=== PATIENT | male | born 1955 | race Caucasian/White ===

== ENCOUNTER 2019-01-03 09:47 | Emergency (ER) | payer MEDICARE ==
[2019-01-03] MEDS ORDERED: Adacel Vial IM ONE ×2 (10:06→10:22)
[2019-01-03 10:07] VITALS: BP 118/86; PULSE 65; O2SAT 97
[2019-01-03] MEDS ORDERED: Xylocaine-Mpf 2% 5 Ml Vial IJ ONE (10:13)
--- NOTE | 2019-01-03 10:19 | ERPHSYRPT ---
- History of Present Illness Time Seen by Provider: 01/03/19 10:05 Source: patient Exam Limitations: clinical condition Patient Subjective Stated Complaint: Fishing hook in the pad below the left thumb Triage Nursing Assessment: vitals wnl, no bleeding, denies any other injuries Physician History: PATIENT WITH A HISTORY OF HYPERTENSION WHILE FISHING CAUGHT A FISH HOOK INTO HIS LEFT PALM, HAS PAIN DISCOMFORT. Occurred: just prior to arrival Method of Injury: incised Quality: constant Severity of Pain-Max: mild Severity of Pain-Current: mild Extremities Pain Location: hand: left Modifying Factors: Improves With: movement Associated Symptoms: none Allergies/Adverse Reactions: No Known Drug Allergies Allergy (Verified 01/03/19 09:59) Home Medications: Olmesartan Medoxomil 20 mg PO DAILY 01/03/19 [History] Omeprazole 20 mg PO DAILY 01/03/19 [History] Simvastatin 10 mg PO DAILY 01/03/19 [History] Hx Tetanus, Diphtheria Vaccination/Date Given: No - Review of Systems Constitutional: No Fever, No Chills Eyes: No Symptoms Ears, Nose, & Throat: No Symptoms Respiratory: No Cough, No Dyspnea Cardiac: No Chest Pain, No Edema, No Syncope Abdominal/Gastrointestinal: No Abdominal Pain, No Nausea, No Vomiting, No Diarrhea Genitourinary Symptoms: No Dysuria Musculoskeletal: Injury, Other (FOREIGN BODY IN LEFT HAND), No Back Pain, No Neck Pain Skin: No Rash Neurological: No Symptoms, No Dizziness, No Focal Weakness, No Sensory Changes Psychological: No Symptoms Endocrine: No Symptoms All Other Systems: Reviewed and Negative - Past Medical History Pertinent Past Medical History: Yes Cardiac History: Hypertension Other Medical History: barretts, kidney stones - Past Surgical History Past Surgical History: Yes Musculoskeletal: Orthopedic Surgery Other Surgical History: rotator cuff - Social History Smoking Status: Never smoker Exposure to second hand smoke: No Drug Use: none Patient Lives Alone: No - Nursing Vital Signs Nursing Vital Signs: Initial Vital Signs Temperature 97.5 F 01/03/19 09:53 Pulse Rate 65 01/03/19 09:53 Blood Pressure 118/86 01/03/19 09:53 O2 Sat by Pulse Oximetry 97 01/03/19 09:53 Pain Scale Pain Intensity 1 - Physical Exam General Appearance: no apparent distress Hand Exam: soft tissue tenderness (THERE IS A FISH HOOK FOREIGN BODY PARTIALLY EMBEDDED INTO LEFT HAND THENAR EMINENCE, FULL RANGE OF MOTION OF ALL DIGITS.) DTR - Upper Extremity Exam: bicep (R): 2+, bicep (L): 2+, tricep (R): 2+, tricep (L): 2+ Skin Exam: normal color SpO2 Interpretation: normal SpO2: 97 Ordered Tests: Medication Summary Discontinued Medications Generic Name Dose Route Start Last Admin Trade Name Freq PRN Reason Stop Dose Admin Diphtheria/Tetanus/Acell Pertussis 0.5 ml 01/03/19 10:06 Adacel Vial IM 01/03/19 10:07 .ONCE ONE - Progress Progress Note: 01/03/19 10:16M, ADMINISTERED ADACEL 0.5ML IM Counseled pt/family regarding: diagnosis, need for follow-up - Departure Departure Disposition: Home Clinical Impression: REMOVAL FISH HOOK LEFT HAND Condition: Stable Critical Care Time: No Additional Instructions: TYLENOL OR MOTRIN FOR PAIN NEEDED. ANTIBIOTIC KEFLEX 500MG EVERY 8 HOURS FOR 7 DAYS. WATCH FOR SIGNS OF INFECTION REDNESS, SWELLING OR DRAINAGE. CLEAN HANDS FREQUENTLY. Prescriptions: Cephalexin Mh 500 mg [Keflex 500 mg] 500 mg PO TID #21 capsule
== END 2019-01-03 10:34 | disposition home or self-care (01) ==
LOC: ED 09:47
DX: S61.442A Puncture wound with foreign body of left hand, initial encounter (principal); W26.9XXA Contact with unspecified sharp object(s), initial encounter
CPT/HCPCS: 90471; 90715; 96372; 99284